=== PATIENT | male | born 1990 | race Caucasian/White ===

== ENCOUNTER 2018-03-01 05:58 | Emergency (ER) | payer MEDICAID ==
[~2018-03-01] VITALS: Ht 182.9 cm; Wt 77.1 kg
[2018-03-01 07:22] VITALS: BP 127/79
== END 2018-03-01 08:09 | disposition home or self-care (01) ==
LOC: ER 06:02
DX: S40.012A Contusion of left shoulder, initial encounter (principal); W08.XXXA Fall from other furniture, initial encounter; Y93.89 Activity, other specified; Y92.89 Other specified places as the place of occurrence of the external cause; Y99.8 Other external cause status
CPT/HCPCS: 73030